=== PATIENT | male | born 1930 | race Caucasian/White ===

== ENCOUNTER 2018-04-21 13:51 | Emergency (ER) | payer OTHER, MEDICARE ==
[2018-04-21 13:57] VITALS: BP 142/87
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
[2018-04-21] MEDS ORDERED: LISINOPRIL20 M1 PO (15:10)
[2018-04-21] MEDS ORDERED: AMLODIPINE BESYL5 M1 PO (15:11)
[2018-04-21] MEDS ORDERED: MEMANTINE HCL10 MG PO (15:11)
[2018-04-21] MEDS ORDERED: LIPITOR40 M1 PO (15:12)
[2018-04-21] MEDS ORDERED: FINASTERIDE5 M1 PO (15:12)
[2018-04-21] MEDS ORDERED: ASPIRIN EC81 M1 PO (15:13)
--- NOTE | 2018-04-21 15:31 | CT SCAN REPORT ---
EXAMINATION: CT HEAD WITHOUT CONTRAST CLINICAL INFORMATION: Head injury. Evaluate for intracranial bleed. COMPARISON: None TECHNIQUE: Contiguous axial imaging was performed from the skull base to vertex without intravenous administration of contrast. DLP: 616 mGy-cm FINDINGS: Brain parenchyma: No acute findings. Stewart-white matter differentiation is well preserved. No evidence of an acute major vascular territory infarction, hemorrhage, mass or midline shift. Mild atherosclerotic calcification of cavernous carotid arteries. Patchy hypoattenuation in subcortical and periventricular white matter consistent with [id number] microangiopathy. Cerebrospinal fluid spaces: Mild atrophy of cerebral hemispheres associated with commensurate prominence of ventricles and sulci No hydrocephalus or extra-axial fluid collections. Cerebellum and brainstem: Unremarkable. The 4th ventricle is midline in position. The cerebellopontine angles are normal. Calvarium, paranasal sinuses, orbits and temporomandibular joints: Focal laceration of left frontal scalp. Fracture defect in the underlying anterior wall of the left frontal sinus measures approximately 1 cm wide and the bone fragments of the disrupted anterior sinus wall are depressed/displaced into the left frontal sinus. Hyperdense secretions/clot within the frontal sinus without air-fluid level. Otherwise, paranasal sinuses are unremarkable. The orbits and globes are intact. The retrobulbar fat planes are maintained. There is developmental left-sided deviation of the nasal septum with septal spur. No nasal bone fracture. Mastoid air cells and middle ear cavities are well aerated. The TMJs are unremarkable. IMPRESSION: 1. No acute intracranial pathology. 2. Findings suggestive of chronic, evgn-mb-nwwzsmye small vessel ischemic changes of the supratentorial white matter and there is mild cerebral atrophy. 3. Acute, depressed fracture of the anterior wall of the left frontal sinus. Associated hyperdense secretions/clot within the frontal sinus.
[2018-04-21] MEDS ORDERED: KEFLEX250 M1 PO (16:18)
[2018-04-22] MEDS ORDERED: KEFLEX750 M1 PO (10:39)
== END 2018-04-21 16:45 ==
LOC: ERH 13:51
DX: S09.90XA Unspecified injury of head, initial encounter (principal); S01.81XA Laceration without foreign body of other part of head, initial encounter; S02.19XA Other fracture of base of skull, initial encounter for closed fracture; W01.0XXA Fall on same level from slipping, tripping and stumbling without subsequent striking against object, initial encounter; Y93.H2 Activity, gardening and landscaping
CPT/HCPCS: J2001

== ENCOUNTER 2018-04-23 10:22 | Emergency (ER) | payer OTHER, MEDICARE ==
[~2018-04-23 10:22] MED LIST: AMLODIPINE BESYL5 M1 PO; ASPIRIN EC81 M1 PO; FINASTERIDE5 M1 PO; KEFLEX250 M1 PO; KEFLEX750 M1 PO; LIPITOR40 M1 PO; LISINOPRIL20 M1 PO; MEMANTINE HCL10 MG PO
[2018-04-23 10:27] VITALS: BP 117/76
--- NOTE | 2018-04-23 10:49 | ED ANIMAL BITE/WOUND CHECK ---
History of Present Illness General Chief Complaint: Facial or Head Injury Stated Complaint: CHECK UP FOR HEAD INJURY WAS TOLD TO COME BACK Source: patient Exam Limitations: no limitations Vital Signs & Intake/Output Vital Signs & Intake/Output Vital Signs Date Time Temp Pulse Resp B/P B/P Pulse O2 O2 Flow FiO2 Mean Ox Delivery Rate 04/23 1027 98.0 67 20 117/76 96 Room Air Allergies Coded Allergies: Iodinated Contrast- Oral and IV Dye (UNKNOWN 04/21/18) Reconcile Medications Amlodipine Besylate (Unknown Strength) TABLET (Unknown Dose) PO DAILY HEART ( Reported) Aspirin (Ecotrin*) 81 MG TABLET.DR 2 TAB PO DAILY HEART HEALTH (Reported) Atorvastatin Calcium (Lipitor) (Unknown Strength) TABLET (Unknown Dose) PO DAILY CHOLESTEROL (Reported) Cephalexin (Keflex) 750 MG CAPSULE 1 CAP PO BID wound Cephalexin (Keflex) 250 MG CAPSULE 1 CAP PO BID WOUND Finasteride (Unknown Strength) TABLET (Unknown Dose) PO DAILY PROSTATE ( Reported) Lisinopril (Unknown Strength) TABLET (Unknown Dose) PO DAILY HEART (Reported) Memantine HCl (Unknown Strength) TABLET (Unknown Dose) PO DAILY SHAKES ( Reported) Triage Note: PT TO ED FOR WOUND CHECK. S/P FALL 2 DAYS AGO WITH SUTURES PLACED TO FOREHEAD/HEAD, WAS TOLD TO COME BACK FOR WOUND CHECK. DENIES PAIN. Triage Nurses Notes Reviewed? yes Onset: Abrupt Duration: day(s): Timing: recent history Injury Environment: home HPI: 87-year-old male comes into the emergency room for further evaluation of wound check to laceration to left side of face. Patient was seen here couple days ago after a head injury. He is currently on oral antibiotics. He had sutures placed. He was told to come back for a wound check. Denies any other associated symptoms. Some associated swelling to his face. (Pranav Julian) Past History Travel History Traveled to [place] past 21 day No Medical History Any Pertinent Medical History? see below for history Cardiovascular: hypertension Surgical History Surgical History: non-contributory Psychosocial History What is your primary language Urdu Tobacco Use: Never used ETOH Use: denies use Illicit Drug Use: denies illicit drug use Family History Hx Contributory? No (Pranav Julian) Review of Systems Review of Systems Constitutional: Reports: no symptoms. EENTM: Reports: no symptoms. Respiratory: Reports: no symptoms. Cardiovascular: Reports: no symptoms. GI: Reports: no symptoms. Genitourinary: Reports: no symptoms. Musculoskeletal: Reports: see HPI. Skin: Reports: see HPI. Neurological/Psychological: Reports: no symptoms. Hematologic/Endocrine: Reports: no symptoms. Immunologic/Allergic: Reports: no symptoms. All Other Systems: Reviewed and Negative (Pranav Julian) Physical Exam Physical Exam General Appearance: well developed/nourished, mild distress Head: swelling, left eye, sutures in place, no erythema/warmth/discharge Eyes: Bilateral: normal appearance, EOMI. Ears, Nose, Throat: normal ENT inspection, hearing grossly normal Neck: normal inspection, supple Respiratory: no respiratory distress Back: normal inspection Extremities: normal range of motion Neurologic/Psych: awake, alert, oriented x 3, normal mood/affect Skin: intact, normal color, warm/dry (Pranav Julian) Progress Differential Diagnosis: abscess, cellulitis, joint infection, tenosysnovitis Plan of Care: 04/23/2018 12:34:22 PM Patient clinically looks well. Patient is in no apparent distress. Patient is nontoxic-appearing. Wound is healing well. Continue medications. Return if any other concerns. (Pranav Julian) Departure Departure Disposition: HOME OR SELF CARE Condition: Stable Clinical Impression Primary Impression: Encounter for wound re-check Referrals: Zoe Watson MD (PCP/Family) Additional Instructions: Return if any concerns worsening symptoms. Return in another 3 days for suture removal. Continue taking oral antibiotics. Please go over all results of today's visit with your primary care doctor. Contact your primary care doctor to let them know you were here in the emergency room. There may be nonspecific findings which may not be related to your visit today here in the emergency room but may require further evaluation and chronic monitoring by your primary care doctor. If you had a laceration today the chance of foreign body always remains. You should follow-up with your primary care doctor for recheck in 3-5 days for a wound check. If you had an x-ray done there is a chance that a fracture could have been missed on initial read and you should follow-up with your primary care doctor for repeat x-rays if symptoms persist. If your blood pressure was elevated here in the emergency room please have rechecked by [facility] primary care doctor within the next 48. If you were prescribed a narcotic here in the emergency room or any type of controlled substances you're not allowed to drive while taking this medication or operate any type of heavy machinery. Narcotics can make you feel lightheaded dizziness nausea and can cause constipation. You may need to clam picker a stool softener. Thank you for choosing [facility] emergency room. Please return to the emergency room immediately if you have any other concerns worsening of symptoms. Departure Forms: Customer Survey General Discharge Information (Pranav Julian) PA/CAR FILLER Co-Sign Statement Statement: ED Attending supervision documentation- [] I saw and evaluated the patient. I have also reviewed all the pertinent lab results and diagnostic results. I agree with the findings and the plan of care as documented in the PA's/CAR FILLER's documentation. [X] I have reviewed the ED Record and agree with the PA's/CAR FILLER's documentation. [] Additions or exceptions (if any) to the PAs/CAR FILLER's note and plan are summarized below: [] (Nithya DE LUNA,Richard Pacheco)
== END 2018-04-23 10:53 ==
LOC: ERH 10:22
DX: Z09 Encounter for follow-up examination after completed treatment for conditions other than malignant neoplasm (principal)

== ENCOUNTER 2018-04-28 09:58 | Emergency (ER) | payer OTHER, MEDICARE ==
[2018-04-28 10:06] VITALS: BP 144/79
--- NOTE | 2018-04-28 10:40 | ED ANIMAL BITE/WOUND CHECK ---
History of Present Illness General Chief Complaint: Suture Removal/Wound Recheck Stated Complaint: SUTURE REMOVAL Source: patient Exam Limitations: no limitations Vital Signs & Intake/Output Vital Signs & Intake/Output Vital Signs Date Time Temp Pulse Resp B/P B/P Pulse O2 O2 Flow FiO2 Mean Ox Delivery Rate 04/28 1006 97.9 82 20 144/79 96 Room Air Allergies Coded Allergies: Iodinated Contrast- Oral and IV Dye (UNKNOWN 04/21/18) Reconcile Medications Amlodipine Besylate (Unknown Strength) TABLET (Unknown Dose) PO DAILY HEART ( Reported) Aspirin (Ecotrin*) 81 MG TABLET.DR 2 TAB PO DAILY HEART HEALTH (Reported) Atorvastatin Calcium (Lipitor) (Unknown Strength) TABLET (Unknown Dose) PO DAILY CHOLESTEROL (Reported) Cephalexin (Keflex) 750 MG CAPSULE 1 CAP PO BID wound Cephalexin (Keflex) 250 MG CAPSULE 1 CAP PO BID WOUND Finasteride (Unknown Strength) TABLET (Unknown Dose) PO DAILY PROSTATE ( Reported) Lisinopril (Unknown Strength) TABLET (Unknown Dose) PO DAILY HEART (Reported) Memantine HCl (Unknown Strength) TABLET (Unknown Dose) PO DAILY SHAKES ( Reported) Triage Note: HERE FOR SUTURE REMOVAL SUTURES ABOVE L EYE HAS HAD WOUND CHECKED 2 DAYS AFTER PLACEMENT SUTURE LINE C/D Triage Nurses Notes Reviewed? yes Onset: Abrupt Duration: week(s): (1), better, continues in ED Timing: single episode today Injury Environment: home Is Injury an Animal Bite? No No Modifying Factors: none HPI: 87-year-old male history of hypertension presents for suture removal. Patient was seen here one week ago after a mechanical fall where he did hit his head. He suffered a frontal sinus fracture. He was seen in the ER had a CT scan the laceration was per the sutures. He's been doing well since. He does with these noticed postnasal drip when he lays down he denies any dizziness headaches syncope chest pain shortness of breath changes in vision or vomiting. Does not take blood thinners. There's been no fever discharge or redness at the laceration site. (Shady Strange) Past History Travel History Traveled to [place] past 21 day No Medical History Any Pertinent Medical History? see below for history Neurological: NONE EENT: NONE Cardiovascular: hypertension Respiratory: NONE Gastrointestinal: NONE Hepatic: NONE Renal: NONE Musculoskeletal: NONE Psychiatric: NONE Endocrine: NONE Surgical History Surgical History: non-contributory Psychosocial History What is your primary language Khmer Tobacco Use: Never used Family History Hx Contributory? No (Shady Strange) Review of Systems Review of Systems Constitutional: Reports: no symptoms. EENTM: Reports: no symptoms. Respiratory: Reports: no symptoms. Cardiovascular: Reports: no symptoms. GI: Reports: no symptoms. Genitourinary: Reports: no symptoms. Musculoskeletal: Reports: no symptoms. Skin: Reports: see HPI (LACERATION). Neurological/Psychological: Reports: no symptoms. Hematologic/Endocrine: Reports: no symptoms. Immunologic/Allergic: Reports: no symptoms. All Other Systems: Reviewed and Negative (Shady Strange) Physical Exam Physical Exam General Appearance: well developed/nourished, no apparent distress, alert, awake Head: THERE IS A 1.5 CM IRREGULAR WELL-HEALED LACERATION LOCATED ON THE LEFT EYEBROW. tHERE IS NO ERYTHEMA DISCHARGE NO TENDERNESS TO PALPATION Eyes: Bilateral: normal appearance, PERRL, EOMI. Ears, Nose, Throat: hearing grossly normal, NO SEPTAL HEMATOMA NO BLOOD IN THE POSTERIOR ORAL PHARYNX Neck: normal inspection, supple, full range of motion Respiratory: no respiratory distress Back: normal inspection, normal range of motion Extremities: normal range of motion Neurologic/Psych: no motor/sensory deficits, awake, alert, oriented x 3, normal gait Skin: intact, normal color, warm/dry (Shady Strange) Progress Differential Diagnosis: abscess, cellulitis Plan of Care: Patient here for suture removal. The laceration is healing well. Sutures removed without difficulty. Bacitracin dressing applied. Discussed wound care procedures. Discussed with him cautions follow-up with primary care doctor case discussed with Dr. Barriga he agrees (Shady Strange) Departure Departure Disposition: HOME OR SELF CARE Condition: Stable Clinical Impression Primary Impression: Visit for suture removal Referrals: Zoe Watson MD (PCP/Family) Additional Instructions: Keep the area clean and dry. Change dressing once daily. After one or 2 days leave the area open to air dry look out for signs of infection like redness swelling discharge or pain follow-up with her primary care doctor for recheck return with any concern. Departure Forms: Customer Survey General Discharge Information (Shady Strange) PA/BUCKLE ATTACHER Co-Sign Statement Statement: ED Attending supervision documentation- [x] I saw and evaluated the patient. I have also reviewed all the pertinent lab results and diagnostic results. I agree with the findings and the plan of care as documented in the PA's/BUCKLE ATTACHER's documentation. Patient presents for evaluation of suture removal after a fall with sinus fracture and forehead laceration. Physical examination reveals mild left periorbital soft tissue swelling and fading ecchymoses. [] I have reviewed the ED Record and agree with the PA's/BUCKLE ATTACHER's documentation. [] Additions or exceptions (if any) to the PAs/BUCKLE ATTACHER's note and plan are summarized below: [] (Nithya DE LUNA,Richard Pacheco)
== END 2018-04-28 10:48 ==
LOC: ERH 09:58
DX: Z48.02 Encounter for removal of sutures (principal)